=== PATIENT | female | born 1990 | race Caucasian/White ===

== ENCOUNTER 2019-01-13 13:58 | Emergency (ER) | payer MEDICAID | END 2019-01-13 15:24 | disposition home or self-care (01) | LOC: EDH 13:58 | DX: K04.7 Periapical abscess without sinus (principal); Z98.890 Other specified postprocedural states ==

== ENCOUNTER 2019-01-18 18:31 | Emergency (ER) | payer MEDICAID | END 2019-01-18 19:07 | disposition home or self-care (01) | LOC: EDH 18:31 | DX: H10.9 Unspecified conjunctivitis (principal) ==

== ENCOUNTER 2019-02-06 19:28 | Emergency (ER) | payer MEDICAID ==
[2019-02-06] MEDS ORDERED: FAMOTIDINE 20MG TAB 20 MG TAB ONE (20:08)
[2019-02-06] MEDS ORDERED: ONDANSETRON ODT 4 MG TAB ONE (20:08)
[2019-02-06 20:32] LABS: RAPID GROUP A STREP NEGATIVE (NEGATIVE)
== END 2019-02-06 20:57 | disposition home or self-care (01) ==
LOC: EDH 19:28
DX: K52.9 Noninfective gastroenteritis and colitis, unspecified (principal); K21.9 Gastro-esophageal reflux disease without esophagitis; Z98.890 Other specified postprocedural states
CPT/HCPCS: 81025; 87804; 87880